=== PATIENT | female | born 1985 | race Two or more races ===

== ENCOUNTER 2017-06-05 09:40 | Emergency (ER) | payer OTHER ==
[2017-06-05 09:45] VITALS: BP 113/80; PULSE 111; BMI 27.4
[2017-06-05] MEDS ORDERED: IBUPROFEN 600 MG TABLET (FP) PO ONE (11:19)
[2017-06-05] MEDS ORDERED: ACETAMINOPHEN 325 MG TABLET (FP) PO ONE (11:19)
[2017-06-05] MEDS ORDERED: ACETAMINOPHEN 325 MG TABLET (FP) ONE (11:30)
--- NOTE | 2017-06-05 12:00 | PDOC ---
History of Present Illness - General Chief Complaint: Cold Symptoms Stated Complaint: COUGH, BODYACHES Time Seen by Provider: 06/05/17 11:16 History Source: Patient Exam Limitations: No Limitations - History of Present Illness Initial Comments: 06/05/17 11:57 31-year-old female with no past medical history presents the ED with complaints of cough, myalgia, and fever since yesterday. Patient denies recent travel, recent sick contacts, recent illness. Patient denies chest rash, change in appetite, urinary complaints or diarrhea. Timing/Duration: reports: yesterday Severity: reports: moderate Possible Cause: Yes: no prior episodes Associated Symptoms: reports: fever/chills, headache (mild), muscle aches Past History - Travel Traveled outside of the country in the last 30 days: No - Past Medical History Allergies/Adverse Reactions: Allergies Allergy/AdvReac Type Severity Reaction Status Date / Time No Known Allergies Allergy Verified 06/05/17 09:45 Home Medications: Ambulatory Orders NK [No Known Home Medication] 06/05/17 Asthma: No Cancer: No Cardiac Disorders: No COPD: No Diabetes: No GI Disorders: Yes (colitis, DIVERTICULOSIS) HTN: No Seizures: No Thyroid Disease: No - Reproductive History (#): 1 Para: 1 - Immunization History Immunization Up to Date: Yes - Suicide/Smoking/Psychosocial Hx Smoking Status: No Smoking History: Never smoked Have you smoked in the past 12 months: No Number of Cigarettes Smoked Daily: 0 Information on smoking cessation initiated: No Hx Alcohol Use: No Drug/Substance Use Hx: No Substance Use Type: None Hx Substance Use Treatment: No Patient Lives Alone: No Lives with/in: parents Review of Systems - Review of Systems Able to Perform ROS?: Yes Constitutional: Yes: Chills, Fever HEENTM: No: Symptoms Reported Respiratory: Yes: Cough Cardiac (ROS): No: Symptoms Reported ABD/GI: No: Symptoms Reported : No: Symptoms Reported Musculoskeletal: Yes: Joint Pain, Muscle Pain Integumentary: No: Symptoms Reported Neurological: Yes: Headache Endocrine: No: Symptoms Reported *Physical Exam - Vital Signs Last Vital Signs Temp Pulse Resp BP Pulse Ox 100.5 F H 111 H 18 113/80 99 06/05/17 09:42 06/05/17 09:42 06/05/17 09:42 06/05/17 09:42 06/05/17 09:42 - Physical Exam General Appearance: Yes: Nourished, Appropriately Dressed. No: Apparent Distress HEENT: positive: EOMI, TRUE, TMs Normal, Pharynx Normal. negative: Pale Conjunctivae Neck: positive: Supple Respiratory/Chest: positive: Lungs Clear, Normal Breath Sounds. negative: Respiratory Distress, Accessory Muscle Use Cardiovascular: positive: Regular Rhythm, Regular Rate. negative: Murmur Gastrointestinal/Abdominal: positive: Soft. negative: Tenderness Integumentary: positive: Normal Color, Warm, Moist Neurologic: positive: Motor Strength 5/5 (ambulatory) ED Treatment Course - Medications Given in the ED: ED Medications Discontinued Medications Generic Name Dose Route Start Last Admin Trade Name Freq PRN Reason Stop Dose Admin Acetaminophen 650 mg 06/05/17 11:19 06/05/17 11:31 Tylenol - PO 06/05/17 11:20 650 mg ONCE ONE Administration Medical Decision Making - Medical Decision Making 06/05/17 11:59 Patient with URI complaints and febrile upon arrival. Patient took Motrin this morning. patient ordered for influenza testing and Tylenol. 06/05/17 12:21 influenza was negative per patient will be treated with Tylenol flow based on clinical exam *DC/Admit/Observation/Transfer Diagnosis at time of Disposition: Influenza - Discharge Dispostion Disposition: HOME Condition at time of disposition: Improved - Referrals Referrals: Kamran Goldman [Primary Care Provider] - - Patient Instructions Printed Discharge Instructions: DI for Influenza -- Adult Additional Instructions: Please take Tamiflu until completed. Please drink plenty of fluids. Take Motrin 600 mg or 975 Tylenol every 6-8 hours for adequate fever control. - Post Discharge Activity
[2017-06-05 12:33] VITALS: TEMP 98.9
== END 2017-06-05 12:34 | disposition home or self-care (01) ==
LOC: JERFT 09:40
DX: J11.1 Influenza due to unidentified influenza virus with other respiratory manifestations (principal)
CPT/HCPCS: 87804; 99281-25